=== PATIENT | male | born 1955 | race Caucasian/White ===

== ENCOUNTER 2022-11-04 13:53 | Outpatient (CLI) | payer MEDICARE, OTHER ==
[2022-11-04 15:06] LABS: Hemoglobin 15.2 g/dL (13.5-17.5)
[2022-11-04 15:31] LABS: Anion Gap 15 mmol/L (10-20); BUN (Urea Nitrogen) 16 mg/dL (8.4-25.7); Calc. Creatinine Clearance 0 mL/min (70-130); Calcium 10.4 mg/dL (7.8-10.44); Carbon Dioxide 28 mmol/L (23-31); Chloride 100 mmol/L (98-107); Estimated GFR 80; Glucose 99 mg/dL (80-115); Potassium 3.8 mmol/L (3.5-5.1); Sodium 139 mmol/L (136-145)
== END 2022-11-04 13:54 | disposition home or self-care (01) ==
LOC: CSHLAB 13:53
PROVIDERS: ATTEND Otolaryngology Plastic Surgery within the Head & Neck
DX: Z01.818 Encounter for other preprocedural examination (principal)
CPT/HCPCS: 80048; 85014; 85018; 93005; 93010

== ENCOUNTER 2022-11-09 07:57 | Day surgery (SDC) | payer MEDICARE, OTHER ==
[2022-11-05 09:07] VITALS: BMI 27.4
[2022-11-09] MEDS ORDERED: SUGAMMADEX SODIUM 200 MG/2 ML VIAL ONE (09:31)
[2022-11-09] MEDS ORDERED: EPINEPHrine 1 MG/ML AMP ONE (09:33)
[2022-11-09] MEDS ORDERED: HYDROcodone/Acetaminophen 5/325 mg Tablet ONE (11:46)
== END 2022-11-09 12:05 | disposition home or self-care (01) ==
LOC: CSHSDC 07:57
PROVIDERS: ATTEND Otolaryngology Plastic Surgery within the Head & Neck
PROC: 0CBS8ZX Excision of Larynx, Via Natural or Artificial Opening Endoscopic, Diagnostic (ICD-10-PCS; principal; 2022-11-09)
DX: C01 Malignant neoplasm of base of tongue (principal); R13.10 Dysphagia, unspecified; R49.0 Dysphonia; K21.9 Gastro-esophageal reflux disease without esophagitis; I10 Essential (primary) hypertension; Z79.899 Other long term (current) drug therapy; Z88.0 Allergy status to penicillin; Z91.040 Latex allergy status
CPT/HCPCS: 70491; 71260; 87624; 88305; 88331; 88341; 88342; 88360; J0171; J1100; J2250; J2405; J2704; J3010

== ENCOUNTER 2022-11-09 08:04 | Outpatient (CLI) | payer MEDICARE, OTHER ==
[2022-11-09] MEDS ORDERED: PROPOFOL 20 ML ONE (09:40)
[2022-11-09] MEDS ORDERED: Fentanyl 100 MCG/2 ML VIAL ONE (09:40)
[2022-11-09] MEDS ORDERED: Midazolam HCl 2 mg/2 ml Vial ONE (09:40)
[2022-11-09] MEDS ORDERED: Dexamethasone 20 MG/5 ML VIAL ONE (09:41)
[2022-11-09] MEDS ORDERED: Rocuronium Bromide 10 MG/ML (10ML VIAL) ONE (09:41)
[2022-11-09] MEDS ORDERED: Ondansetron PF 4 MG/2 ML Vial ONE (09:41)
[2022-11-09] MEDS ORDERED: PHENYLEPHRINE-NS 100 MCG/ML 10 ML SYRINGE ONE (10:20)
[2022-11-09] MEDS ORDERED: ePHEDrine Sulfate 50 MG/10 ML VIAL ONE (10:38)
== END 2022-11-09 08:05 | disposition home or self-care (01) ==
LOC: CSHCT 08:04
PROVIDERS: ATTEND Otolaryngology Plastic Surgery within the Head & Neck
DX: R13.10 Dysphagia, unspecified (principal); R49.0 Dysphonia; D49.0 Neoplasm of unspecified behavior of digestive system; C02.4 Malignant neoplasm of lingual tonsil; C77.0 Secondary and unspecified malignant neoplasm of lymph nodes of head, face and neck
CPT/HCPCS: 70491; 71260; J1100; J2250; J2405; J2704; J3010